=== PATIENT | female | born 1935 | race Caucasian/White ===

== ENCOUNTER 2017-04-16 09:19 | Emergency (ER) | payer OTHER ==
[~2017-04-16] VITALS: Ht 170.2 cm; Wt 83.8 kg
[~2017-04-16 09:19] MED LIST: AMITRIPTYLINE H10 MG PO; ASPIR-LOW81 MG PO; CALTRATE PLUS1 EACH PO; ELAVIL10 MG PO; FLOVENT 22120 INHALA IH; PROSOM 2 MG TAB2 MG PO; SINGULAIR10 MG PO; SPIRONOLACT/HC1 EACH PO; SYNTHROID75 MCG PO; VENTOLIN HFA18 GM IH; VITAMIN D32000 UNI1 PO; ZOCOR40 MG PO
[2017-04-16] MEDS ORDERED: ZOFRAN ODT4 MG PO (13:51)
[2017-04-16] MEDS ORDERED: COLACE100 MG PO (13:51)
[2017-04-16] MEDS ORDERED: ROXICODONE5 MG PO (13:51)
[2017-04-16] MEDS ORDERED: TYLENOL EXTRA500 MG PO (13:51)
[2017-04-16 15:17] VITALS: BP 136/79
== END 2017-04-16 15:18 | disposition home or self-care (01) ==
LOC: EME 09:19
DX: S42.292A Other displaced fracture of upper end of left humerus, initial encounter for closed fracture (principal); S43.005A Unspecified dislocation of left shoulder joint, initial encounter; S01.112A Laceration without foreign body of left eyelid and periocular area, initial encounter; W19.XXXA Unspecified fall, initial encounter; Y92.512 Supermarket, store or market as the place of occurrence of the external cause; Z23 Encounter for immunization; I10 Essential (primary) hypertension; J45.909 Unspecified asthma, uncomplicated; E03.9 Hypothyroidism, unspecified; Z85.850 Personal history of malignant neoplasm of thyroid; Z88.1 Allergy status to other antibiotic agents
CPT/HCPCS: 70450; 70486; 72040; 73030; 73060; 73080; 73110; 99281; 99285; J2765; J3010; J7120

== ENCOUNTER 2017-05-04 14:45 | Inpatient (IN) | payer OTHER ==
[~2017-05-04] VITALS: Ht 170.2 cm; Wt 87.7 kg
[~2017-05-04 14:45] MED LIST changes: +COLACE100 MG PO; +ROXICODONE5 MG PO; +TYLENOL EXTRA500 MG PO; +ZOFRAN ODT4 MG PO
[2017-05-04 15:08] LABS: HEMATOCRIT 32.8 % (36.0-46.0); MCH 28.7 PG (29.0-34.0); MCHC 32.3 G/DL (30.0-36.0); MCV 88.9 FL (83-99); MEAN PLAT.VOLUME 9.6 uM^3 (9.5-12.4); NRBC (%) 0.4 /100 WBC (0-0); PLATELET COUNT 323 K/uL (156-360); RBC DIS.WIDTH-CV 14.9 % (11.8-14.6); RBC DIS.WIDTH-SD 48.5 % (39-53); RED BLOOD COUNT 3.69 M/uL (3.80-5.20); WHITE BLOOD COUNT 7.9 K/uL (4.1-10.2)
[2017-05-04 15:17] LABS: CHLORIDE 106 mEq/L (99-109); SODIUM 139 mEq/L (136-147)
[2017-05-04 15:18] LABS: GLUCOSE 137 mg/dL (70-99)
[2017-05-04 15:20] LABS: ANION GAP 10 MEQ/L (2-14)
[2017-05-04 15:22] LABS: GFR ESTIMATE (CALCULATED) > 59 mL/min/
[2017-05-04 15:23] LABS: UREA NITROGEN (BUN) 9 mg/dL (9-23)
[2017-05-04 15:29] LABS: TROP-I INTERPRETATION NEGATIVE; TROPONIN-I < 0.01 ng/mL (0.0-0.30)
[2017-05-04 18:03] LABS: ALKALINE PHOSPHATASE 673 IU/L (3-129); TOTAL BILIRUBIN 5.2 mg/dL (0.0-1.0)
[2017-05-04 18:07] LABS: LIPASE 30 U/L (1.0-51.0)
[2017-05-04 18:22] LABS: INTER. NORMALIZED RATIO 1.1; PROTHROMBIN TIME 12.8 SEC (10.2-12.9)
[2017-05-04 18:25] LABS: PTT 30.7 SEC (25-37)
[2017-05-04] MEDS ORDERED: LEVOTHYROXINE88 MCG PO (18:41)
[2017-05-04] MEDS ORDERED: GABAPENTIN300 MG PO (18:41)
[2017-05-04] MEDS ORDERED: SIMVASTATIN40 MG PO (18:41)
[2017-05-04] MEDS ORDERED: METOPROLOL SUCC25 MG PO (18:42)
[2017-05-04] MEDS ORDERED: MONTELUKAST SOD10 MG PO (18:42)
[2017-05-04] MEDS ORDERED: PREDNISONE1 MG PO (18:43)
[2017-05-04] MEDS ORDERED: OXYCODONE HCL5 MG PO (18:44)
[2017-05-04 20:58] LABS: SALICYLATE < 5.0 MG/DL (15-30)
[2017-05-04 21:48] VITALS: BP 131/60
[2017-05-04 22:11] LABS: TROP-I INTERPRETATION NEGATIVE; TROPONIN-I 0.02 ng/mL (0.0-0.30)
[2017-05-05] VITALS (9 sets, daily range): BP systolic 86–155; BP diastolic 48–86
[2017-05-05 05:40] LABS: ADD MIUA? YES; BILIRUBIN MODERATE; BLOOD NEGATIVE; COLOR AMBER ((YELLOW)); GLUCOSE (STRIP) 50; KETONES 20; LEUKOCYTES TRACE; NITRITE POSITIVE; PROTEIN (STRIP) 30; SPECIFIC GRAVITY 1.044 (1.000-1.030)
[2017-05-05 05:58] LABS: BACTERIA 3+ /HPF; CASTS PRESENT /LPF; CRYSTALS NONE SEEN; EPITHELIAL CELLS RARE /HPF; HYALINE CASTS 0-5 /LPF; MUCUS RARE /LPF; RED BLOOD CELLS 0-5 /HPF (0-5); UCUL ADDED? YES; WHITE BLOOD CELLS 20-30 /HPF (0-5)
[2017-05-05 06:55] LABS: HEMATOCRIT 29.4 % (36.0-46.0); MCHC 31.3 G/DL (30.0-36.0); MCV 89.6 FL (83-99); RBC DIS.WIDTH-SD 49.6 % (39-53); RED BLOOD COUNT 3.28 M/uL (3.80-5.20); WHITE BLOOD COUNT 11.9 K/uL (4.1-10.2)
[2017-05-05 06:56] LABS: MEAN PLAT.VOLUME 9.9 uM^3 (9.5-12.4); PLATELET COUNT 318 K/uL (156-360); RBC DIS.WIDTH-CV 15.5 % (11.8-14.6)
[2017-05-05 07:02] LABS: INTER. NORMALIZED RATIO 1.3; PROTHROMBIN TIME 15.2 SEC (10.2-12.9)
[2017-05-05 07:07] LABS: PTT 59.6 SEC (25-37)
[2017-05-05 07:11] LABS: ALKALINE PHOSPHATASE 501 IU/L (3-129); ANION GAP 11 MEQ/L (2-14); CHLORIDE 106 MEQ/L (99-109); GFR ESTIMATE (CALCULATED) > 59 mL/min/; GLUCOSE 124 mg/dL (70-99); POTASSIUM 3.7 MEQ/L (3.7-5.4); SAMPLE HEMOLYSIS CHECK 0; SAMPLE ICTERIC CHECK 2; SAMPLE LIPEMIA CHECK 0; SODIUM 137 MEQ/L (136-147); TOTAL BILIRUBIN 7.4 MG/DL (0.0-1.0); UREA NITROGEN (BUN) 12 mg/dL (9-23)
[2017-05-05 14:06] LABS: ICTOTEST POSITIVE
[2017-05-05 19:20] LABS: POINT-OF-CARE METER ID UU13113717
[2017-05-05 20:28] LABS: EOSINOPHIL (%) 0 % (0-5); HEMATOCRIT 29.4 % (36.0-46.0); IMMATURE GRANULOCYTE (%) 1.1 % (0.0-0.7); IMMATURE GRANULOCYTE COUNT 0.1 K/uL; INSTRUMENT ABS NEUTROPHIL CT 10.4 K/uL; LYMPHOCYTE COUNT 0.3 K/uL (1.0-2.8); MCHC 32.3 G/DL (30.0-36.0); MCV 89.6 FL (83-99); MONOCYTE (%) 4.6 % (3-12); MONOCYTE COUNT 0.5 K/uL (0-0.8); NEUTROPHIL (%) 91.6 % (45-76); NEUTROPHIL COUNT 10.4 K/uL (1.8-6.4); PLATELET COUNT 299 K/uL (156-360); RBC DIS.WIDTH-CV 15.9 % (11.8-14.6); RBC DIS.WIDTH-SD 51.6 % (39-53); RED BLOOD COUNT 3.28 M/uL (3.80-5.20); WHITE BLOOD COUNT 11.4 K/uL (4.1-10.2)
[2017-05-05 20:48] LABS: TROP-I INTERPRETATION NEGATIVE; TROPONIN-I < 0.01 ng/mL (0.0-0.30)
[2017-05-05 22:05] LABS: METH RESISTANT S AUREUS PCR NEGATIVE (NEGATIVE)
[2017-05-05 22:13] LABS: PROBE CHECK PASS; SPECIMEN PROCESSING CONTROL PASS
[2017-05-06] VITALS (9 sets, daily range): BP systolic 95–137; BP diastolic 40–75
[2017-05-06 05:11] LABS: HEMATOCRIT 26.8 % (36.0-46.0); MCH 28.5 PG (29.0-34.0); MCHC 32.1 G/DL (30.0-36.0); MCV 88.7 FL (83-99); MEAN PLAT.VOLUME 9.9 uM^3 (9.5-12.4); NRBC (%) 0.2 /100 WBC (0-0); PLATELET COUNT 247 K/uL (156-360); RBC DIS.WIDTH-CV 15.7 % (11.8-14.6); RBC DIS.WIDTH-SD 50.4 % (39-53); RED BLOOD COUNT 3.02 M/uL (3.80-5.20); WHITE BLOOD COUNT 9.3 K/uL (4.1-10.2)
[2017-05-06 05:27] LABS: CHLORIDE 105 mEq/L (99-109); POTASSIUM 3.6 mEq/L (3.7-5.4); SODIUM 135 mEq/L (136-147)
[2017-05-06 05:30] LABS: GLUCOSE 112 mg/dL (70-99)
[2017-05-06 05:31] LABS: ANION GAP 9 MEQ/L (2-14)
[2017-05-06 05:33] LABS: GFR ESTIMATE (CALCULATED) > 59 mL/min/
[2017-05-06 05:34] LABS: ALKALINE PHOSPHATASE 427 IU/L (3-129)
[2017-05-06 05:37] LABS: UREA NITROGEN (BUN) 23 mg/dL (9-23)
[2017-05-07] VITALS (8 sets, daily range): BP systolic 95–118; BP diastolic 51–63
[2017-05-07 05:48] LABS: HEMATOCRIT 30.4 % (36.0-46.0); MCH 28.1 PG (29.0-34.0); MCHC 30.9 G/DL (30.0-36.0); MCV 90.7 FL (83-99); MEAN PLAT.VOLUME 9.8 uM^3 (9.5-12.4); PLATELET COUNT 240 K/uL (156-360); RBC DIS.WIDTH-CV 15.9 % (11.8-14.6); RBC DIS.WIDTH-SD 52.5 % (39-53); RED BLOOD COUNT 3.35 M/uL (3.80-5.20)
[2017-05-07 07:11] LABS: ADD MIUA? YES; BILIRUBIN NEGATIVE; BLOOD NEGATIVE; COLOR AMBER ((YELLOW)); GLUCOSE (STRIP) NEGATIVE; KETONES 5; LEUKOCYTES NEGATIVE; NITRITE NEGATIVE; PROTEIN (STRIP) 30; SPECIFIC GRAVITY 1.025 (1.000-1.030); UROBILINOGEN 0.2 MG/DL (0.2-1.0)
[2017-05-07 07:25] LABS: BACTERIA RARE /HPF; CALCIUM OXALATE CRYSTALS 1+ /HPF; EPITHELIAL CELLS 1+ /HPF; MUCUS TRACE /LPF; RED BLOOD CELLS 0-5 /HPF (0-5)
[2017-05-07 09:46] LABS: ALKALINE PHOSPHATASE 342 IU/L (3-129); ANION GAP 9 MEQ/L (2-14); CHLORIDE 112 MEQ/L (99-109); DIRECT BILIRUBIN 1.3 mg/dL (0.0-0.3); GFR ESTIMATE (CALCULATED) > 59 mL/min/; GLUCOSE 98 mg/dL (70-99); LIPASE 25 U/L (1.0-51.0); POTASSIUM 4.3 MEQ/L (3.7-5.4); SAMPLE HEMOLYSIS CHECK 0; SAMPLE ICTERIC CHECK 0; SAMPLE LIPEMIA CHECK 0; SODIUM 140 MEQ/L (136-147); TOTAL BILIRUBIN 2.3 MG/DL (0.0-1.0); UREA NITROGEN (BUN) 16 mg/dL (9-23)
[2017-05-07 17:53] LABS: INTER. NORMALIZED RATIO 1.2; PROTHROMBIN TIME 14.1 SEC (10.2-12.9)
[2017-05-07 17:56] LABS: PTT 63.7 SEC (25-37)
[2017-05-07 21:28] LABS: C DIFF TOXIN NEGATIVE (NEGATIVE)
[2017-05-07 21:32] LABS: PROBE CHECK PASS; SPECIMEN PROCESSING CONTROL PASS
[2017-05-08] VITALS (7 sets, daily range): BP systolic 104–119; BP diastolic 50–66
[2017-05-08 07:40] LABS: HEMATOCRIT 23.8 % (36.0-46.0); MCH 27.9 PG (29.0-34.0); MCHC 30.7 G/DL (30.0-36.0); MCV 90.8 FL (83-99); MEAN PLAT.VOLUME 9.8 uM^3 (9.5-12.4); PLATELET COUNT 236 K/uL (156-360); RBC DIS.WIDTH-CV 16.2 % (11.8-14.6); WHITE BLOOD COUNT 6.9 K/uL (4.1-10.2)
[2017-05-08 08:08] LABS: ALKALINE PHOSPHATASE 274 IU/L (3-129); ANION GAP 8 MEQ/L (2-14); CHLORIDE 110 MEQ/L (99-109); GFR ESTIMATE (CALCULATED) > 59 mL/min/; GLUCOSE 95 mg/dL (70-99); POTASSIUM 3.8 MEQ/L (3.7-5.4); SAMPLE HEMOLYSIS CHECK 0; SAMPLE ICTERIC CHECK 0; SAMPLE LIPEMIA CHECK 0; SODIUM 139 MEQ/L (136-147); UREA NITROGEN (BUN) 12 mg/dL (9-23)
[2017-05-08 08:11] LABS: TOTAL BILIRUBIN 1.7 MG/DL (0.0-1.0)
[2017-05-08 08:23] LABS: RED BLOOD COUNT 2.62 M/uL (3.80-5.20)
[2017-05-09 05:14] VITALS: BP 121/57
[2017-05-09 05:22] LABS: HEMATOCRIT 25.3 % (36.0-46.0); MCH 27.7 PG (29.0-34.0); MCHC 30.4 G/DL (30.0-36.0); MEAN PLAT.VOLUME 9.9 uM^3 (9.5-12.4); NRBC (%) 0.5 /100 WBC (0-0); PLATELET COUNT 277 K/uL (156-360); RBC DIS.WIDTH-CV 16.1 % (11.8-14.6); RBC DIS.WIDTH-SD 53.3 % (39-53); RED BLOOD COUNT 2.78 M/uL (3.80-5.20); WHITE BLOOD COUNT 8.1 K/uL (4.1-10.2)
[2017-05-09 05:58] LABS: ANION GAP 11 MEQ/L (2-14); CHLORIDE 106 MEQ/L (99-109); GFR ESTIMATE (CALCULATED) > 59 mL/min/; GLUCOSE 85 mg/dL (70-99); POTASSIUM 3.8 MEQ/L (3.7-5.4); SAMPLE HEMOLYSIS CHECK 0; SAMPLE ICTERIC CHECK 0; SAMPLE LIPEMIA CHECK 0; SODIUM 139 MEQ/L (136-147); UREA NITROGEN (BUN) 10 mg/dL (9-23)
[2017-05-09 07:55] VITALS: BP 132/60
[2017-05-09 12:52] VITALS: BP 135/63
[2017-05-09 16:01] VITALS: BP 132/63
[2017-05-09 21:00] VITALS: BP 115/75
[2017-05-10] VITALS (9 sets, daily range): BP systolic 114–144; BP diastolic 60–75
[2017-05-10 05:58] LABS: HEMATOCRIT 27.2 % (36.0-46.0); MCH 28.4 PG (29.0-34.0); MCHC 31.3 G/DL (30.0-36.0); MEAN PLAT.VOLUME 10.5 uM^3 (9.5-12.4); NRBC (%) 0.5 /100 WBC (0-0); PLATELET COUNT 276 K/uL (156-360); RBC DIS.WIDTH-CV 16.1 % (11.8-14.6); RBC DIS.WIDTH-SD 52.9 % (39-53); RED BLOOD COUNT 2.99 M/uL (3.80-5.20); WHITE BLOOD COUNT 11.1 K/uL (4.1-10.2)
[2017-05-10 06:27] LABS: ALKALINE PHOSPHATASE 245 IU/L (3-129); ANION GAP 9 MEQ/L (2-14); CHLORIDE 105 MEQ/L (99-109); GFR ESTIMATE (CALCULATED) > 59 mL/min/; GLUCOSE 85 mg/dL (70-99); POTASSIUM 3.7 MEQ/L (3.7-5.4); SAMPLE HEMOLYSIS CHECK 0; SAMPLE ICTERIC CHECK 0; SAMPLE LIPEMIA CHECK 0; SODIUM 139 MEQ/L (136-147); TOTAL BILIRUBIN 1.3 MG/DL (0.0-1.0); UREA NITROGEN (BUN) 8 mg/dL (9-23)
[2017-05-10 21:02] LABS: POINT-OF-CARE METER ID UU13113698
[2017-05-11 00:07] VITALS: BP 134/67
[2017-05-11 05:36] LABS: HEMATOCRIT 29.5 % (36.0-46.0); MCHC 31.5 G/DL (30.0-36.0); MCV 88.9 FL (83-99); MEAN PLAT.VOLUME 9.9 uM^3 (9.5-12.4); NRBC (%) 0.3 /100 WBC (0-0); PLATELET COUNT 313 K/uL (156-360); RBC DIS.WIDTH-CV 16.1 % (11.8-14.6); RBC DIS.WIDTH-SD 52.4 % (39-53); RED BLOOD COUNT 3.32 M/uL (3.80-5.20); WHITE BLOOD COUNT 11.8 K/uL (4.1-10.2)
[2017-05-11 06:05] VITALS: BP 116/52
[2017-05-11 06:38] LABS: ALKALINE PHOSPHATASE 214 IU/L (3-129); ANION GAP 10 MEQ/L (2-14); CHLORIDE 105 MEQ/L (99-109); GFR ESTIMATE (CALCULATED) > 59 mL/min/; GLUCOSE 119 mg/dL (70-99); POTASSIUM 4.3 MEQ/L (3.7-5.4); SAMPLE HEMOLYSIS CHECK 0; SAMPLE ICTERIC CHECK 0; SAMPLE LIPEMIA CHECK 0; SODIUM 140 MEQ/L (136-147); TOTAL BILIRUBIN 1.2 MG/DL (0.0-1.0); UREA NITROGEN (BUN) 7 mg/dL (9-23)
[2017-05-11 09:00] VITALS: BP 113/57
[2017-05-11 11:12] LABS: INTER. NORMALIZED RATIO 1.4; PROTHROMBIN TIME 15.8 SEC (10.2-12.9)
[2017-05-11 11:23] LABS: PTT 32.3 SEC (25-37)
[2017-05-11 12:00] VITALS: BP 112/54
[2017-05-11 16:00] VITALS: BP 114/59
[2017-05-11 18:49] LABS: INTER. NORMALIZED RATIO 1.6
[2017-05-11 19:41] VITALS: BP 136/63
[2017-05-11 19:42] LABS: PTT 124.7 SEC (25-37)
[2017-05-12 00:24] VITALS: BP 127/76
[2017-05-12 03:25] LABS: HEMATOCRIT 30.4 % (36.0-46.0); MCH 28.3 PG (29.0-34.0); MCHC 31.3 G/DL (30.0-36.0); MCV 90.5 FL (83-99); MEAN PLAT.VOLUME 10.4 uM^3 (9.5-12.4); NRBC (%) 0.2 /100 WBC (0-0); PLATELET COUNT 298 K/uL (156-360); RBC DIS.WIDTH-CV 16.4 % (11.8-14.6); RBC DIS.WIDTH-SD 53.1 % (39-53); RED BLOOD COUNT 3.36 M/uL (3.80-5.20); WHITE BLOOD COUNT 8.1 K/uL (4.1-10.2)
[2017-05-12 03:30] LABS: INTER. NORMALIZED RATIO 1.4; PROTHROMBIN TIME 16.4 SEC (10.2-12.9)
[2017-05-12 03:33] LABS: PTT 82.4 SEC (25-37)
[2017-05-12 03:44] LABS: CHLORIDE 106 mEq/L (99-109); SODIUM 138 mEq/L (136-147)
[2017-05-12 03:46] LABS: GLUCOSE 107 mg/dL (70-99)
[2017-05-12 03:48] LABS: ANION GAP 9 MEQ/L (2-14)
[2017-05-12 03:50] LABS: GFR ESTIMATE (CALCULATED) > 59 mL/min/
[2017-05-12 03:51] LABS: ALKALINE PHOSPHATASE 197 IU/L (3-129); TOTAL BILIRUBIN 0.9 mg/dL (0.0-1.0); UREA NITROGEN (BUN) 6 mg/dL (9-23)
[2017-05-12 04:19] VITALS: BP 132/64
[2017-05-12 09:00] VITALS: BP 113/55
[2017-05-12 10:10] LABS: INTER. NORMALIZED RATIO 1.4; PROTHROMBIN TIME 16.6 SEC (10.2-12.9)
[2017-05-12 10:14] LABS: PTT 55.9 SEC (25-37)
[2017-05-12 17:00] LABS: INTER. NORMALIZED RATIO 1.6
[2017-05-12 17:03] LABS: PTT 38.5 SEC (25-37)
[2017-05-12 19:10] VITALS: BP 118/55
[2017-05-13] VITALS (7 sets, daily range): BP systolic 114–134; BP diastolic 60–81
[2017-05-13 05:40] LABS: EOSINOPHIL (%) 3.8 % (0-5); EOSINOPHIL COUNT 0.3 K/uL (0-0.3); IMMATURE GRANULOCYTE (%) 1.5 % (0.0-0.7); IMMATURE GRANULOCYTE COUNT 0.1 K/uL; INSTRUMENT ABS NEUTROPHIL CT 4.6 K/uL; LYMPHOCYTE COUNT 1.1 K/uL (1.0-2.8); MCH 27.8 PG (29.0-34.0); MCHC 30.7 G/DL (30.0-36.0); MCV 90.6 FL (83-99); MEAN PLAT.VOLUME 10.3 uM^3 (9.5-12.4); MONOCYTE (%) 10.4 % (3-12); MONOCYTE COUNT 0.7 K/uL (0-0.8); NEUTROPHIL (%) 68.2 % (45-76); NEUTROPHIL COUNT 4.6 K/uL (1.8-6.4); PLATELET COUNT 334 K/uL (156-360); RBC DIS.WIDTH-CV 16.3 % (11.8-14.6); RBC DIS.WIDTH-SD 53.7 % (39-53); WHITE BLOOD COUNT 6.8 K/uL (4.1-10.2)
[2017-05-13 06:11] LABS: ALKALINE PHOSPHATASE 167 IU/L (3-129); ANION GAP 7 MEQ/L (2-14); CHLORIDE 107 MEQ/L (99-109); GFR ESTIMATE (CALCULATED) > 59 mL/min/; GLUCOSE 94 mg/dL (70-99); SAMPLE HEMOLYSIS CHECK 0; SAMPLE ICTERIC CHECK 0; SAMPLE LIPEMIA CHECK 0; SODIUM 141 MEQ/L (136-147); TOTAL BILIRUBIN 0.9 MG/DL (0.0-1.0); UREA NITROGEN (BUN) 7 mg/dL (9-23)
[2017-05-14 05:18] VITALS: BP 116/61
[2017-05-14 05:48] LABS: EOSINOPHIL (%) 2.1 % (0-5); EOSINOPHIL COUNT 0.2 K/uL (0-0.3); HEMATOCRIT 29.5 % (36.0-46.0); IMMATURE GRANULOCYTE (%) 1.2 % (0.0-0.7); IMMATURE GRANULOCYTE COUNT 0.1 K/uL; INSTRUMENT ABS NEUTROPHIL CT 6.2 K/uL; LYMPHOCYTE COUNT 1.1 K/uL (1.0-2.8); MCH 27.4 PG (29.0-34.0); MCHC 30.5 G/DL (30.0-36.0); MCV 89.7 FL (83-99); MEAN PLAT.VOLUME 9.9 uM^3 (9.5-12.4); MONOCYTE COUNT 0.9 K/uL (0-0.8); NEUTROPHIL (%) 72.2 % (45-76); NEUTROPHIL COUNT 6.2 K/uL (1.8-6.4); PLATELET COUNT 364 K/uL (156-360); RBC DIS.WIDTH-CV 16.1 % (11.8-14.6); RED BLOOD COUNT 3.29 M/uL (3.80-5.20); WHITE BLOOD COUNT 8.5 K/uL (4.1-10.2)
[2017-05-14 06:10] LABS: ALKALINE PHOSPHATASE 169 IU/L (3-129); ANION GAP 9 MEQ/L (2-14); CHLORIDE 101 MEQ/L (99-109); GFR ESTIMATE (CALCULATED) > 59 mL/min/; GLUCOSE 93 mg/dL (70-99); SAMPLE HEMOLYSIS CHECK 0; SAMPLE ICTERIC CHECK 0; SAMPLE LIPEMIA CHECK 0; SODIUM 137 MEQ/L (136-147); UREA NITROGEN (BUN) 7 mg/dL (9-23)
[2017-05-14 08:15] VITALS: BP 132/60
[2017-05-14 08:16] LABS: POINT-OF-CARE METER ID UU14174216; POINT-OF-CARE USER ID ENVKC36
[2017-05-14 11:44] VITALS: BP 115/55
[2017-05-14] MEDS ORDERED: MYCOSTATIN 100,60 ML PO ×2 (12:02→13:52)
[2017-05-14] MEDS ORDERED: ELIQUIS5 MG PO ×2 (12:03→12:04)
[2017-05-14] MEDS ORDERED: DOCUSATE SODIU100 MG PO (12:05)
[2017-05-14] MEDS ORDERED: CEFOTAN IM (13:48)
[2017-05-14] MEDS ORDERED: TYLENOL REGULA325 MG PO (13:50)
[2017-05-14] MEDS ORDERED: PEPCID20 MG PO (13:55)
[2017-05-14] MEDS ORDERED: PRAVACHOL80 MG PO (13:56)
[2017-05-14] MEDS ORDERED: AMBIEN5 MG PO (13:58)
== END 2017-05-14 13:19 | DRG 853 ==
LOC: EME 14:45 → 4WEST 19:40 → EDOF 19:40 → 5SOUTH 19:40 → 4EAST 19:40 → ENRESERV 19:45 → 5SOUTH 21:16 → ENRESERV 05-05 19:26 → 4WEST 05-05 19:31 → ENRESERV 05-07 10:29 → 4EAST 05-07 13:24
PROVIDERS: Emergency Medicine; Family Medicine; Hospitalist; Physician Assistant Medical; Radiology Diagnostic Radiology; Surgery
DX: A41.9 Sepsis, unspecified organism (principal); K80.67 Calculus of gallbladder and bile duct with acute and chronic cholecystitis with obstruction; T84.81XA Embolism due to internal orthopedic prosthetic devices, implants and grafts, initial encounter; I26.99 Other pulmonary embolism without acute cor pulmonale; Y83.1 Surgical operation with implant of artificial internal device as the cause of abnormal reaction of the patient, or of later complication, without mention of misadventure at the time of the procedure; J96.01 Acute respiratory failure with hypoxia; I97.89 Other postprocedural complications and disorders of the circulatory system, not elsewhere classified; I48.0 Paroxysmal atrial fibrillation; B37.0 Candidal stomatitis; D64.9 Anemia, unspecified; N39.0 Urinary tract infection, site not specified; B96.20 Unspecified Escherichia coli [E. coli] as the cause of diseases classified elsewhere; B96.1 Klebsiella pneumoniae [K. pneumoniae] as the cause of diseases classified elsewhere; J90 Pleural effusion, not elsewhere classified; E87.6 Hypokalemia; J98.11 Atelectasis; J44.9 Chronic obstructive pulmonary disease, unspecified; I72.8 Aneurysm of other specified arteries; J84.10 Pulmonary fibrosis, unspecified; I10 Essential (primary) hypertension; E78.5 Hyperlipidemia, unspecified; E89.0 Postprocedural hypothyroidism; G89.18 Other acute postprocedural pain; M25.512 Pain in left shoulder; E66.9 Obesity, unspecified; Z68.30 Body mass index [BMI] 30.0-30.9, adult; M19.90 Unspecified osteoarthritis, unspecified site; I08.0 Rheumatic disorders of both mitral and aortic valves; G89.29 Other chronic pain; K21.9 Gastro-esophageal reflux disease without esophagitis; K44.9 Diaphragmatic hernia without obstruction or gangrene; Z96.612 Presence of left artificial shoulder joint; Z87.81 Personal history of (healed) traumatic fracture; Z86.73 Personal history of transient ischemic attack (TIA), and cerebral infarction without residual deficits; Z85.850 Personal history of malignant neoplasm of thyroid; Z91.81 History of falling; Z90.710 Acquired absence of both cervix and uterus; Z82.49 Family history of ischemic heart disease and other diseases of the circulatory system; Z83.3 Family history of diabetes mellitus; Z80.1 Family history of malignant neoplasm of trachea, bronchus and lung
CPT/HCPCS: 71010; 71275; 74183; 74328; 80048; 80053; 80076; 81003; 82248; 82272; 82948; 83605; 83690; 84443; 84484; 85025; 85027; 85610; 85730; 86850; 86900; 86901; 86920; 87040; 87070; 87075; 87076; 87077; 87081; 87086; 87186; 87205; 87493; 87641; 88304; 93005; 93970; 94640 76; 94799; 97530 GO; 97530 GP; 99202; 99281; 99285; C1757; C1769; G0480; J0131; J0610; J0690; J0692; J0696; J0713; J1100; J1885; J1956; J2270; J2370; J2405; J2710; J3010; J3480; J7030; J7050; J7512; P9016; S0028; S0074

== ENCOUNTER 2017-05-14 11:16 | Inpatient (IN) | payer OTHER ==
[~2017-05-14] VITALS: Ht 171.4 cm; Wt 86.4 kg
[~2017-05-14 11:16] MED LIST changes: +GABAPENTIN300 MG PO; +LEVOTHYROXINE88 MCG PO; +METOPROLOL SUCC25 MG PO; +MONTELUKAST SOD10 MG PO; +OXYCODONE HCL5 MG PO; +PREDNISONE1 MG PO; +SIMVASTATIN40 MG PO
[2017-05-14] MEDS ORDERED: MYCOSTATIN 100,60 ML PO ×2 (12:02→13:52)
[2017-05-14] MEDS ORDERED: ELIQUIS5 MG PO ×2 (12:03→12:04)
[2017-05-14] MEDS ORDERED: DOCUSATE SODIU100 MG PO (12:05)
[2017-05-14] MEDS ORDERED: CEFOTAN IM (13:48)
[2017-05-14] MEDS ORDERED: TYLENOL REGULA325 MG PO (13:50)
[2017-05-14] MEDS ORDERED: PEPCID20 MG PO (13:55)
[2017-05-14] MEDS ORDERED: PRAVACHOL80 MG PO (13:56)
[2017-05-14] MEDS ORDERED: AMBIEN5 MG PO (13:58)
[2017-05-14 14:26] VITALS: BP 124/77
[2017-05-15 00:29] VITALS: BP 129/60
[2017-05-15 03:56] VITALS: BP 113/52
[2017-05-15 05:56] LABS: MCHC 32.1 G/DL (30.0-36.0); PLATELET COUNT 311 K/uL (156-360); RBC DIS.WIDTH-CV 15.9 % (11.8-14.6); RBC DIS.WIDTH-SD 50.4 % (39-53); RED BLOOD COUNT 3.22 M/uL (3.80-5.20); WHITE BLOOD COUNT 7.9 K/uL (4.1-10.2)
[2017-05-15 06:22] LABS: ALKALINE PHOSPHATASE 152 IU/L (3-129); ALT (GPT) 8 IU/L (3-49); AST (GOT) 18 IU/L (2-34); CHLORIDE 104 MEQ/L (99-109); CREATININE 0.6 MG/DL (0.6-1.3); GFR ESTIMATE (CALCULATED) > 59 mL/min/; GLUCOSE 101 mg/dL (70-99); POTASSIUM 3.8 MEQ/L (3.7-5.4); SODIUM 139 MEQ/L (136-147); TOTAL PROTEIN 4.6 G/DL (6.4-8.3); UREA NITROGEN (BUN) 7 mg/dL (9-23)
[2017-05-15 15:25] VITALS: BP 108/55
[2017-05-16 05:35] VITALS: BP 103/52
[2017-05-16 15:00] VITALS: BP 128/74
[2017-05-17 06:23] VITALS: BP 126/59
[2017-05-17 09:00] VITALS: BP 110/56
[2017-05-17 15:20] VITALS: BP 136/60
[2017-05-18 06:10] VITALS: BP 117/56
[2017-05-18 15:15] VITALS: BP 128/59
[2017-05-19 05:53] VITALS: BP 106/54
[2017-05-19 15:09] VITALS: BP 122/59
[2017-05-20 05:18] VITALS: BP 111/56
[2017-05-20 15:19] VITALS: BP 128/61
[2017-05-21 05:27] VITALS: BP 114/57
[2017-05-21 15:25] VITALS: BP 121/60
[2017-05-22 05:22] VITALS: BP 102/50
[2017-05-22 07:19] LABS: BASOPHIL (%) 0.3 % (0-1); EOSINOPHIL (%) 2.2 % (0-5); EOSINOPHIL COUNT 0.1 K/uL (0-0.3); HEMATOCRIT 30.5 % (36.0-46.0); HEMOGLOBIN 9.5 G/DL (11.9-15.5); IMMATURE GRANULOCYTE (%) 0.3 % (0.0-0.7); LYMPHOCYTE (%) 22.6 % (15-42); LYMPHOCYTE COUNT 1.3 K/uL (1.0-2.8); MCH 27.8 PG (29.0-34.0); MCHC 31.1 G/DL (30.0-36.0); MCV 89.2 FL (83-99); MONOCYTE (%) 11.4 % (3-12); MONOCYTE COUNT 0.7 K/uL (0-0.8); NEUTROPHIL (%) 63.2 % (45-76); NEUTROPHIL COUNT 3.7 K/uL (1.8-6.4); PLATELET COUNT 400 K/uL (156-360); RBC DIS.WIDTH-SD 51.8 % (39-53); RED BLOOD COUNT 3.42 M/uL (3.80-5.20); WHITE BLOOD COUNT 5.8 K/uL (4.1-10.2)
[2017-05-22 07:44] LABS: ALBUMIN 2.6 G/DL (3.2-4.8); ALKALINE PHOSPHATASE 117 IU/L (3-129); ALT (GPT) 7 IU/L (3-49); AST (GOT) 15 IU/L (2-34); CHLORIDE 106 MEQ/L (99-109); CREATININE 0.6 MG/DL (0.6-1.3); GFR ESTIMATE (CALCULATED) > 59 mL/min/; GLUCOSE 98 mg/dL (70-99); SODIUM 143 MEQ/L (136-147); UREA NITROGEN (BUN) 10 mg/dL (9-23)
[2017-05-22 15:57] VITALS: BP 114/56
[2017-05-23 05:19] VITALS: BP 116/56
[2017-05-23 16:05] VITALS: BP 122/58
[2017-05-24 06:10] VITALS: BP 117/56
[2017-05-24 15:53] VITALS: BP 109/58
[2017-05-25 05:49] VITALS: BP 108/53
[2017-05-25 15:26] VITALS: BP 120/60
[2017-05-26 05:41] VITALS: BP 108/55
[2017-05-26 15:07] VITALS: BP 113/63
[2017-05-27 04:10] VITALS: BP 101/52
[2017-05-27 15:34] VITALS: BP 143/67
[2017-05-28 05:16] VITALS: BP 132/64
[2017-05-28 16:00] VITALS: BP 129/60
[2017-05-29 05:05] VITALS: BP 118/56
[2017-05-29 15:40] VITALS: BP 131/63
[2017-05-30 16:01] VITALS: BP 131/60
[2017-05-31 05:24] VITALS: BP 106/54
[2017-05-31 15:00] VITALS: BP 118/56
[2017-06-01 05:34] VITALS: BP 114/58
[2017-06-01 15:28] VITALS: BP 116/59
[2017-06-01 19:41] LABS: ALBUMIN 3.3 G/DL (3.2-4.8); ALKALINE PHOSPHATASE 90 IU/L (3-129); ALT (GPT) 9 IU/L (3-49); AST (GOT) 18 IU/L (2-34); CHLORIDE 107 MEQ/L (99-109); CREATININE 0.7 MG/DL (0.6-1.3); GFR ESTIMATE (CALCULATED) > 59 mL/min/; GLUCOSE 117 mg/dL (70-99); SODIUM 143 MEQ/L (136-147); TOTAL BILIRUBIN 0.9 MG/DL (0.0-1.0); TOTAL PROTEIN 5.7 G/DL (6.4-8.3); UREA NITROGEN (BUN) 19 mg/dL (9-23)
[2017-06-01 20:33] LABS: HEMATOCRIT 33.4 % (36.0-46.0); HEMOGLOBIN 10.4 G/DL (11.9-15.5); MCH 27.7 PG (29.0-34.0); MCHC 31.1 G/DL (30.0-36.0); MCV 89.1 FL (83-99); PLAT.SUFFICIENCY ADEQUATE; RBC DIS.WIDTH-SD 54.6 % (39-53); RED BLOOD COUNT 3.75 M/uL (3.80-5.20); WHITE BLOOD COUNT 6.3 K/uL (4.1-10.2)
[2017-06-01 20:35] LABS: PLATELET CLUMPS PRESENT
[2017-06-02 05:24] VITALS: BP 109/57
[2017-06-02] MEDS ORDERED: METOPROLOL SUCC25 MG PO (11:02)
[2017-06-02] MEDS ORDERED: GABAPENTIN300 MG PO (11:02)
[2017-06-02] MEDS ORDERED: VITAMIN D32000 UNI1 PO (11:02)
[2017-06-02] MEDS ORDERED: ELIQUIS5 MG PO (11:02)
[2017-06-02] MEDS ORDERED: MONTELUKAST SOD10 MG PO (11:02)
[2017-06-02] MEDS ORDERED: VENTOLIN HFA18 GM IH (11:02)
[2017-06-02] MEDS ORDERED: OXYCODONE HCL5 MG PO (11:02)
[2017-06-02 15:59] VITALS: BP 127/66
== END 2017-06-02 16:15 | disposition home health service (06) | DRG 91 ==
LOC: 3WEST 11:16 → ENPENDDIS 06-02 → 3WEST 06-02 16:15
PROVIDERS: Physical Medicine & Rehabilitation Pain Medicine; Psychiatry & Neurology Neurology
PROC: F07M0ZZ Range of Motion and Joint Mobility Treatment of Musculoskeletal System - Whole Body (ICD-10-PCS; principal; 2017-05-14)
DX: R26.9 Unspecified abnormalities of gait and mobility (principal); Z47.1 Aftercare following joint replacement surgery; I26.99 Other pulmonary embolism without acute cor pulmonale; I10 Essential (primary) hypertension; E78.5 Hyperlipidemia, unspecified; R53.1 Weakness; Z96.612 Presence of left artificial shoulder joint; K80.10 Calculus of gallbladder with chronic cholecystitis without obstruction; M17.0 Bilateral primary osteoarthritis of knee; G89.18 Other acute postprocedural pain; J45.909 Unspecified asthma, uncomplicated; R53.81 Other malaise; E66.9 Obesity, unspecified; E88.09 Other disorders of plasma-protein metabolism, not elsewhere classified; J90 Pleural effusion, not elsewhere classified; D62 Acute posthemorrhagic anemia; E83.51 Hypocalcemia; I48.0 Paroxysmal atrial fibrillation; E77.8 Other disorders of glycoprotein metabolism; B37.0 Candidal stomatitis; Z88.1 Allergy status to other antibiotic agents; E03.9 Hypothyroidism, unspecified; Z90.710 Acquired absence of both cervix and uterus; Z90.49 Acquired absence of other specified parts of digestive tract; Z86.73 Personal history of transient ischemic attack (TIA), and cerebral infarction without residual deficits; Z85.850 Personal history of malignant neoplasm of thyroid; Z88.0 Allergy status to penicillin; Z98.890 Other specified postprocedural states; Z68.29 Body mass index [BMI] 29.0-29.9, adult; Z79.01 Long term (current) use of anticoagulants; Z98.41 Cataract extraction status, right eye; Z86.711 Personal history of pulmonary embolism; Z82.49 Family history of ischemic heart disease and other diseases of the circulatory system; Z83.3 Family history of diabetes mellitus; M19.012 Primary osteoarthritis, left shoulder; M17.11 Unilateral primary osteoarthritis, right knee
CPT/HCPCS: 73564; 80053; 85025; 85027; 97110 GO; 97530 GP; J7512